=== PATIENT | female | born 1980 | race Two or more races ===

== ENCOUNTER → 2017-06-08 | Outpatient (CLI) | payer MEDICARE ==
[~2017-06-08] MED LIST: MEDRONATE TC99M/UD<30 MCL ISOTOPE 1 EA INJ INJ ONE
== END | disposition home or self-care (01) ==
LOC: RADMN 08:28
PROVIDERS: ATTEND Orthopaedic Surgery
DX: C41.9 Malignant neoplasm of bone and articular cartilage, unspecified (principal); M79.605 Pain in left leg
CPT/HCPCS: 78306; A9503